=== PATIENT | female | born 1960 | race Caucasian/White ===

== ENCOUNTER 2020-10-04 12:02 | Day surgery (SDC) | payer MEDICARE, MEDICAID ==
[~2020-10-04] VITALS: Ht 152.4 cm; Wt 111.4 kg
[~2020-10-04 12:02] MED LIST: ALBU8.5H INH; ATOR40TA75 PO; BUPR150T5 PO; GABA600T4 PO; GLIP5TAB8; HYDR-4571; JARD1TAB PO; LIDOCAINE 1% MDV 20ML VIAL SQ PRN; LORA1TAB4 PO; LR 1,000 ML IV ONE; NALT50TA4 PO; NORT50CA PO; OMEP-218 PO; PROP60TA14 PO; TOPI25TA10 PO; TRUL0.5I SC; ceFAZolin SOD 2 GM in IV 1 EA IV ONE
--- NOTE | 2020-10-04 12:40 | REP ---
INDICATION: PRE-OP ASSESSMENT. COMPARISON: None. FINDINGS: KUB shows the intestinal gas pattern to be nonspecific. The organ silhouettes insofar as delineated are unremarkable. There is no evidence of free intraperitoneal air. No abnormal calcifications are identified IMPRESSION: Nonspecific. Consider further evaluation with noncontrast enhanced stone protocol CT if clinically relevant. <Electronically signed by Saqib Mcgee > 10/04/20 [id number]
[2020-10-04] MEDS ORDERED: ADV500INH INH (13:04)
[2020-10-04] MEDS ORDERED: VITA1CAP25 PO (13:05)
[2020-10-04] MEDS ORDERED: DIPH25CA32 PO (13:05)
[2020-10-04] MEDS ORDERED: MIDAZOLAM INJ 2MG/2ML VIAL (J2250 PER 1MG) As Ordered ONE (13:13)
[2020-10-04] MEDS ORDERED: fentaNYL 100 MCG/2 ML INJECTION (J3010) As Ordered ONE (13:14)
[2020-10-04] MEDS ORDERED: dexameTHASONE 4 MG/ML 1ML VIAL (J1100 PER 1MG) As Ordered ONE (13:15)
[2020-10-04] MEDS ORDERED: ONDANSETRON 4MG/2ML VIAL As Ordered ONE (13:15)
[2020-10-04] MEDS ORDERED: propofoL 200 MG/20 ML VIAL As Ordered ONE ×2 (13:16→13:19)
[2020-10-04] MEDS ORDERED: FLOM0.4C39 PO (14:11)
[2020-10-04] MEDS ORDERED: LR 1,000 ML IV SCH (15:05)
[2020-10-04] MEDS ORDERED: fentaNYL 100 MCG/2 ML INJECTION (J3010) IV PRN (15:05)
[2020-10-04] MEDS ORDERED: oxyCODONE 5MG TAB PO PRN (15:05)
[2020-10-04 16:10] VITALS: BP 156/78
--- NOTE | 2020-10-04 19:12 | RO ---
OPERATIVE NOTE DATE OF OPERATION: 10/04/2020 PREOPERATIVE DIAGNOSIS: Right kidney stone. POSTOPERATIVE DIAGNOSIS: Right kidney stone. PROCEDURES: Right extracorporeal shock wave lithotripsy. SURGEON: Trever Niño MD. CENTRAL PROCESSING TECH: None. ANESTHESIA: MAC. OPERATIVE INDICATIONS: This is a 60-year-old female who was recently found to have a non-obstructing 9-mm lower pole right kidney stone on CAT scan. She was brought to the operating room today for treatment. DESCRIPTION OF PROCEDURE: The patient was brought to the operating room and MAC anesthesia was induced. Prophylactic antibiotics were infused. She was then placed in the supine position in preparation for right-sided extracorporeal shock wave lithotripsy. Fluoroscopy and ultrasonography were utilized to monitor stone position and fragmentation throughout the procedure. Shock waves were then delivered to the right-sided kidney stone and gated. There were no arrhythmias. The stone did appear to fragment well. After 2500 shocks, the procedure was concluded. The patient was then awakend from anesthesia and transported to the recovery room in stable condition. ESTIMATED BLOOD LOSS: 0 mL. COMPLICATIONS: None. SPECIMEN: None. PLAN: The patient will follow up in the [facility]rology [facility] in a few weeks with imaging prior to assess for residual stone burden.
== END 2020-10-04 16:20 | disposition home or self-care (01) ==
LOC: M SDC 12:02 → EDUNIT# 15:45 → M SDC 16:20
PROVIDERS: ATTEND Urology
DX: N20.0 Calculus of kidney (principal); E11.9 Type 2 diabetes mellitus without complications; K21.9 Gastro-esophageal reflux disease without esophagitis; I10 Essential (primary) hypertension; M19.90 Unspecified osteoarthritis, unspecified site; M54.9 Dorsalgia, unspecified; F41.9 Anxiety disorder, unspecified; F32.9 Major depressive disorder, single episode, unspecified; F42.9 Obsessive-compulsive disorder, unspecified; G43.909 Migraine, unspecified, not intractable, without status migrainosus; J45.909 Unspecified asthma, uncomplicated; Z88.8 Allergy status to other drugs, medicaments and biological substances; Z91.040 Latex allergy status; Z79.899 Other long term (current) drug therapy; Z79.891 Long term (current) use of opiate analgesic; Z79.84 Long term (current) use of oral hypoglycemic drugs; Z79.51 Long term (current) use of inhaled steroids
CPT/HCPCS: 50590; 74018; J0690; J1100; J2250; J2405; J3010

== ENCOUNTER → 2020-10-29 | Outpatient (CLI) | payer MEDICARE, MEDICAID ==
[~2020-10-29] MED LIST changes: +ADV500INH INH; +DIPH25CA32 PO; +FLOM0.4C39 PO; -LIDOCAINE 1% MDV 20ML VIAL SQ PRN; -LR 1,000 ML IV ONE; +VITA1CAP25 PO; -ceFAZolin SOD 2 GM in IV 1 EA IV ONE
--- NOTE | 2020-10-29 10:27 | REP ---
INDICATION: N20.0 KIDNEY STONE. COMPARISON: 10/04/2020 FINDINGS: KUB shows the intestinal gas pattern to be nonspecific. The organ silhouettes insofar as delineated are unremarkable. There is no evidence of free intraperitoneal air. The upper portion of the colon is filled with content. The nephric silhouettes are obscured. Abnormal calcifications cannot be ruled out. IMPRESSION: Nonspecific. <Electronically signed by Saqib Mcgee > 10/29/20 1022
== END ==
LOC: M PLAIMG 09:21
PROVIDERS: ATTEND Nurse Practitioner Women's Health
DX: N20.0 Calculus of kidney (principal)